=== PATIENT | female | born 1970 | race Caucasian/White ===

== ENCOUNTER 2017-01-10 08:19 | Emergency (ER) | payer BC ==
[~2017-01-10] VITALS: Ht 160 cm; Wt 60.3 kg
[~2017-01-10 08:19] MED LIST: CIPRO500 MG PO; CYMBALTA60 M1 PO; FLO4 PO; IMITREX100 MG PO; MET2.5 PO; MOTRIN800 MG PO; SEROQUEL200 MG PO; SOMA350 MG PO; SYN25; SYNTHROID0.125 MG PO; TEG100 PO; TRAZODONE HCL100 MG PO; TRAZODONE HYDR100 MG PO; TYLENOL WITH CO1 TA3 PO
[2017-01-10 09:12] LABS: BASOPHIL % 0.2 % (0-2); PLATELET COUNT 276 x10^3mcL (130-400); RED CELL DISTRIBUTION WIDTH 13.9 % (11.5-14.5)
[2017-01-10 09:28] LABS: CALCIUM 8.7 mg/dL (8.5-10.1); CARBON DIOXIDE 29.6 mmol/L (21-32); CHLORIDE SERUM 105 mmol/L (98-107); CREATININE SERUM 0.9 mg/dL (0.6-1.0); GFR1 > 60 mL/min; GLUCOSE SERUM 125 mg/dL (74-106); POTASSIUM SERUM 3.7 mmol/L (3.5-5.1); SODIUM SERUM 142 mmol/L (136-145)
[2017-01-10 09:33] LABS: ALKALINE PHOSPHATASE 67 U/L (46-116); ALT/SGPT 20 U/L (14-59); AST/SGOT 16 U/L (15-37); BILIRUBIN TOTAL 0.37 mg/dL (0.20-1.00); TOTAL PROTEIN, SERUM 7.3 g/dL (6.4-8.2)
[2017-01-10 09:46] LABS: UA SPECIFIC GRAVITY 1.015 (1.005-1.035); microscopic required? YES; urine erythrocyte 2+ (NEGATIVE)
[2017-01-10 10:56] VITALS: BP 145/65
== END 2017-01-10 10:56 | disposition home or self-care (01) ==
LOC: ED 08:19
PROVIDERS: Emergency Medicine
DX: N20.2 Calculus of kidney with calculus of ureter (principal); Z87.442 Personal history of urinary calculi; Z79.899 Other long term (current) drug therapy
CPT/HCPCS: J1885; J2270; J2405; J7030; Q0092

== ENCOUNTER 2017-01-13 07:55 | Emergency (ER) | payer BC ==
[2017-01-13 08:46] LABS: BASOPHIL % 0.4 % (0-2); PLATELET COUNT 247 x10^3mcL (130-400); RED CELL DISTRIBUTION WIDTH 13.3 % (11.5-14.5)
[2017-01-13 08:50] LABS: CALCIUM 8.4 mg/dL (8.5-10.1); CARBON DIOXIDE 28.9 mmol/L (21-32); CHLORIDE SERUM 107 mmol/L (98-107); CREATININE SERUM 0.9 mg/dL (0.6-1.0); GFR1 > 60 mL/min; GLUCOSE SERUM 98 mg/dL (74-106); POTASSIUM SERUM 3.7 mmol/L (3.5-5.1); SODIUM SERUM 142 mmol/L (136-145)
[2017-01-13 08:55] LABS: ALBUMIN 3.6 g/dL (3.4-5.0); ALKALINE PHOSPHATASE 58 U/L (46-116); ALT/SGPT 17 U/L (14-59); AMYLASE 44 U/L (25-115); AST/SGOT 12 U/L (15-37); BILIRUBIN TOTAL 0.2 mg/dL (0.20-1.00); LIPASE 86 IU/L (73-393); TOTAL PROTEIN, SERUM 6.2 g/dL (6.4-8.2)
[2017-01-13 09:22] LABS: UA SPECIFIC GRAVITY 1.025 (1.005-1.035); microscopic required? YES; urine erythrocyte 2+ (NEGATIVE)
[2017-01-13 12:03] VITALS: BP 123/79
== END 2017-01-13 12:03 | disposition home or self-care (01) ==
LOC: ED 07:55
PROVIDERS: Specialist
DX: R10.9 Unspecified abdominal pain (principal); R10.30 Lower abdominal pain, unspecified; M79.7 Fibromyalgia; G43.909 Migraine, unspecified, not intractable, without status migrainosus; F17.200 Nicotine dependence, unspecified, uncomplicated; Z87.442 Personal history of urinary calculi; Z88.1 Allergy status to other antibiotic agents; Z88.2 Allergy status to sulfonamides
CPT/HCPCS: 83880; J1170; J1885; J3010; J7030; Q0092

== ENCOUNTER 2017-02-18 03:25 | Emergency (ER) | payer BC ==
[~2017-02-18] VITALS: Ht 160 cm; Wt 62.1 kg
[2017-02-18 05:58] VITALS: BP 125/81
== END 2017-02-18 05:58 | disposition home or self-care (01) ==
LOC: ED 03:25
DX: G43.909 Migraine, unspecified, not intractable, without status migrainosus (principal); E07.9 Disorder of thyroid, unspecified; R11.2 Nausea with vomiting, unspecified; Z88.2 Allergy status to sulfonamides; Z88.1 Allergy status to other antibiotic agents
CPT/HCPCS: J3030

== ENCOUNTER 2017-05-11 16:17 | Emergency (ER) | payer BC ==
[~2017-05-11] VITALS: Ht 160 cm; Wt 55.8 kg
[2017-05-11 19:45] LABS: BASOPHIL % 0.4 % (0-2); PLATELET COUNT 280 x10^3mcL (130-400)
[2017-05-11 19:46] LABS: RED CELL DISTRIBUTION WIDTH 14.8 % (11.5-14.5)
[2017-05-11 19:53] LABS: ALBUMIN 3.5 g/dL (3.4-5.0); ALKALINE PHOSPHATASE 75 U/L (46-116); ALT/SGPT 23 U/L (14-59); AMYLASE 38 U/L (25-115); AST/SGOT 21 U/L (15-37); BILIRUBIN TOTAL 0.3 mg/dL (0.20-1.00); CARBON DIOXIDE 29.6 mmol/L (21-32); CHLORIDE SERUM 105 mmol/L (98-107); CREATININE SERUM 0.9 mg/dL (0.6-1.0); GFR1 > 60 mL/min; GLUCOSE SERUM 102 mg/dL (74-106); LIPASE 98 IU/L (73-393); POTASSIUM SERUM 3.5 mmol/L (3.5-5.1); SODIUM SERUM 142 mmol/L (136-145); TOTAL PROTEIN, SERUM 6.8 g/dL (6.4-8.2)
[2017-05-11 20:40] LABS: CALCIUM 8.8 mg/dL (8.5-10.1)
[2017-05-11 23:16] VITALS: BP 128/82
== END 2017-05-11 23:16 | disposition home or self-care (01) ==
LOC: ED 16:17
PROVIDERS: Emergency Medicine
DX: N28.1 Cyst of kidney, acquired (principal); Z90.710 Acquired absence of both cervix and uterus
CPT/HCPCS: 83880; J1885; J2270; J2405; J2765; J7030

== ENCOUNTER 2017-07-08 08:39 | Emergency (ER) | payer BC ==
[~2017-07-08] VITALS: Ht 160 cm; Wt 58.2 kg
[2017-07-08 10:15] LABS: UA SPECIFIC GRAVITY 1.015 (1.005-1.035); microscopic required? YES; urine erythrocyte 3+ (NEGATIVE)
[2017-07-08 10:23] LABS: BASOPHIL % 0.2 % (0-2); PLATELET COUNT 263 x10^3mcL (130-400)
[2017-07-08 10:33] LABS: CARBON DIOXIDE 26.1 mmol/L (21-32); CHLORIDE SERUM 106 mmol/L (98-107); CREATININE SERUM 0.7 mg/dL (0.6-1.0); GFR1 > 60 mL/min; GLUCOSE SERUM 101 mg/dL (74-106); POTASSIUM SERUM 3.4 mmol/L (3.5-5.1); SODIUM SERUM 142 mmol/L (136-145); TOTAL PROTEIN, SERUM 7.3 g/dL (6.4-8.2)
[2017-07-08 10:34] LABS: ALKALINE PHOSPHATASE 75 U/L (46-116); ALT/SGPT 18 U/L (14-59); AST/SGOT 17 U/L (15-37); BILIRUBIN TOTAL 0.7 mg/dL (0.20-1.00); CALCIUM 8.9 mg/dL (8.5-10.1)
[2017-07-08 11:59] VITALS: BP 125/73
== END 2017-07-08 12:27 | disposition home or self-care (01) ==
LOC: ED 08:39
PROVIDERS: Emergency Medicine
DX: N20.1 Calculus of ureter (principal); Z88.1 Allergy status to other antibiotic agents; Z88.2 Allergy status to sulfonamides
CPT/HCPCS: J1885; J2405; J3010; J3030; J7030

== ENCOUNTER 2017-08-30 12:34 | Emergency (ER) | payer BC ==
[2017-08-30 15:48] VITALS: BP 132/62
== END 2017-08-30 15:48 | disposition home or self-care (01) ==
LOC: ED 12:34
DX: G43.909 Migraine, unspecified, not intractable, without status migrainosus (principal); Z88.1 Allergy status to other antibiotic agents; Z88.2 Allergy status to sulfonamides
CPT/HCPCS: J1885; J3010; J3030; Q0162

== ENCOUNTER 2017-09-15 12:55 | Emergency (ER) | payer BC ==
[2017-09-15 12:57] VITALS: BP 154/99
== END 2017-09-15 15:37 | disposition home or self-care (01) ==
LOC: ED 12:55
DX: G43.909 Migraine, unspecified, not intractable, without status migrainosus (principal); M19.90 Unspecified osteoarthritis, unspecified site; E05.90 Thyrotoxicosis, unspecified without thyrotoxic crisis or storm; Z88.1 Allergy status to other antibiotic agents; Z88.2 Allergy status to sulfonamides; Z90.710 Acquired absence of both cervix and uterus
CPT/HCPCS: J3030; Q0162

== ENCOUNTER 2017-09-25 09:24 | Emergency (ER) | payer BC ==
[2017-09-25 11:02] LABS: UA SPECIFIC GRAVITY 1.015 (1.005-1.035); microscopic required? YES; urine erythrocyte 3+ (NEGATIVE)
[2017-09-25 13:28] VITALS: BP 143/83
== END 2017-09-25 13:28 | disposition home or self-care (01) ==
LOC: ED 09:24
PROVIDERS: Emergency Medicine
DX: G43.909 Migraine, unspecified, not intractable, without status migrainosus (principal); N20.0 Calculus of kidney; Z87.442 Personal history of urinary calculi; E03.9 Hypothyroidism, unspecified; M19.90 Unspecified osteoarthritis, unspecified site; Z88.1 Allergy status to other antibiotic agents; Z88.2 Allergy status to sulfonamides
CPT/HCPCS: J1885; J2270; J2405; J7030; Q0092

== ENCOUNTER 2017-10-22 13:11 | Emergency (ER) | payer BC ==
[2017-10-22 16:57] VITALS: BP 123/77
== END 2017-10-22 16:57 | disposition home or self-care (01) ==
LOC: ED 13:11
DX: G43.909 Migraine, unspecified, not intractable, without status migrainosus (principal); M19.90 Unspecified osteoarthritis, unspecified site; E05.90 Thyrotoxicosis, unspecified without thyrotoxic crisis or storm; F17.210 Nicotine dependence, cigarettes, uncomplicated; Z88.1 Allergy status to other antibiotic agents; Z88.2 Allergy status to sulfonamides; Z71.6 Tobacco abuse counseling
CPT/HCPCS: 99406; J1885; J2765; J3030

== ENCOUNTER 2017-11-17 06:16 | Emergency (ER) | payer BC ==
[~2017-11-17] VITALS: Ht 160 cm; Wt 55.8 kg
[2017-11-17 06:24] VITALS: Ht 160 cm; Wt 55.8 kg
[2017-11-17 07:40] VITALS: BP 142/63
== END 2017-11-17 07:40 | disposition home or self-care (01) ==
LOC: ED 06:16
DX: B34.9 Viral infection, unspecified (principal); G43.909 Migraine, unspecified, not intractable, without status migrainosus; R03.0 Elevated blood-pressure reading, without diagnosis of hypertension; E05.90 Thyrotoxicosis, unspecified without thyrotoxic crisis or storm; Z88.1 Allergy status to other antibiotic agents; Z88.2 Allergy status to sulfonamides
CPT/HCPCS: J1885; J2765; J3030; J7613; J7644

== ENCOUNTER 2017-12-08 16:57 | Emergency (ER) | payer BC ==
[~2017-12-08] VITALS: Ht 162.6 cm; Wt 56.2 kg
[2017-12-08 17:03] VITALS: Ht 162.6 cm; Wt 56.2 kg
[2017-12-08 19:19] LABS: BASOPHIL % 0.4 % (0-2); PLATELET COUNT 313 x10^3mcL (130-400); RED CELL DISTRIBUTION WIDTH 13.6 % (11.5-14.5)
[2017-12-08 19:22] LABS: CALCIUM 9.1 mg/dL (8.5-10.1); CARBON DIOXIDE 22.1 mmol/L (21-32); CHLORIDE SERUM 104 mmol/L (98-107); CREATININE SERUM 0.8 mg/dL (0.6-1.0); GFR1 > 60 mL/min; GLUCOSE SERUM 91 mg/dL (74-106); POTASSIUM SERUM 3.6 mmol/L (3.5-5.1); SODIUM SERUM 138 mmol/L (136-145)
[2017-12-08 19:26] LABS: ALBUMIN 3.7 g/dL (3.4-5.0); ALKALINE PHOSPHATASE 83 U/L (46-116); ALT/SGPT 18 U/L (14-59); AST/SGOT 15 U/L (15-37); BILIRUBIN TOTAL 0.39 mg/dL (0.20-1.00); TOTAL PROTEIN, SERUM 7.3 g/dL (6.4-8.2)
[2017-12-09 00:16] VITALS: BP 121/78
== END 2017-12-09 00:16 | disposition home or self-care (01) ==
LOC: ED 16:57
PROVIDERS: Emergency Medicine
DX: G43.909 Migraine, unspecified, not intractable, without status migrainosus (principal); M19.90 Unspecified osteoarthritis, unspecified site; E05.90 Thyrotoxicosis, unspecified without thyrotoxic crisis or storm; Z88.1 Allergy status to other antibiotic agents; Z88.2 Allergy status to sulfonamides
CPT/HCPCS: J0780; J1100; J1885; J2270; J7030; Q0092

== ENCOUNTER 2019-02-15 22:09 | Emergency (ER) | payer BC ==
[~2019-02-15] VITALS: Ht 160 cm; Wt 78.5 kg
[2019-02-15 22:17] VITALS: Ht 160 cm; Wt 78.5 kg
[2019-02-15 23:08] VITALS: BP 157/105
== END 2019-02-15 23:08 | disposition home or self-care (01) ==
LOC: ED 22:09
DX: S90.32XA Contusion of left foot, initial encounter (principal); G43.909 Migraine, unspecified, not intractable, without status migrainosus; F41.9 Anxiety disorder, unspecified; E03.9 Hypothyroidism, unspecified; M19.90 Unspecified osteoarthritis, unspecified site; Z88.2 Allergy status to sulfonamides; Z88.1 Allergy status to other antibiotic agents; Z87.442 Personal history of urinary calculi; Z90.712 Acquired absence of cervix with remaining uterus; W20.8XXA Other cause of strike by thrown, projected or falling object, initial encounter; Y93.89 Activity, other specified; Y92.89 Other specified places as the place of occurrence of the external cause; Y99.8 Other external cause status

== ENCOUNTER 2019-08-31 08:34 | Emergency (ER) | payer BC ==
[~2019-08-31] VITALS: Ht 160 cm; Wt 80.7 kg
[2019-08-31 08:42] VITALS: Ht 160 cm; Wt 80.7 kg
[2019-08-31 09:58] LABS: BASOPHIL % 0.6 % (0-2); PLATELET COUNT 328 x10^3mcL (130-400)
[2019-08-31 10:09] LABS: CALCIUM 8.4 mg/dL (8.5-10.1); CARBON DIOXIDE 23.4 mmol/L (21-32); CHLORIDE SERUM 110 mmol/L (98-107); CREATININE SERUM 0.7 mg/dL (0.6-1.0); GFR1 > 60 mL/min; GLUCOSE SERUM 85 mg/dL (74-106); POTASSIUM SERUM 3.7 mmol/L (3.5-5.1); SODIUM SERUM 143 mmol/L (136-145)
[2019-08-31 10:21] LABS: ALBUMIN 3.5 g/dL (3.4-5.0); ALKALINE PHOSPHATASE 128 U/L (46-116); ALT/SGPT 17 U/L (14-59); AST/SGOT 5 U/L (15-37); BILIRUBIN TOTAL 0.27 mg/dL (0.20-1.00); HDL CHOLESTEROL 57 mg/dL (40-60); LIPASE 131 IU/L (73-393); T4(THYROXINE) 8.8 ug/dL (4.7-13.3); TOTAL PROTEIN, SERUM 7.1 g/dL (6.4-8.2)
[2019-08-31 10:27] LABS: CHOLESTEROL 277 mg/dL (<200)
[2019-08-31 10:33] LABS: RED CELL DISTRIBUTION WIDTH 16.6 % (11.5-14.5)
[2019-08-31 10:45] LABS: UA SPECIFIC GRAVITY 1.025 (1.005-1.035); microscopic required? YES; urine erythrocyte 1+ (NEGATIVE)
[2019-08-31 11:00] LABS: AMPHETAMINE QUAL UR NONE DETECTED (See below)
[2019-08-31 13:50] VITALS: BP 128/76
== END 2019-08-31 13:50 | disposition left against medical advice (07) ==
LOC: ED 08:34
PROVIDERS: Emergency Medicine
DX: K44.9 Diaphragmatic hernia without obstruction or gangrene (principal); M79.7 Fibromyalgia; E03.9 Hypothyroidism, unspecified; F17.210 Nicotine dependence, cigarettes, uncomplicated; L93.0 Discoid lupus erythematosus; G43.909 Migraine, unspecified, not intractable, without status migrainosus; F41.9 Anxiety disorder, unspecified; M19.90 Unspecified osteoarthritis, unspecified site; Z98.890 Other specified postprocedural states; Z87.442 Personal history of urinary calculi; Z90.711 Acquired absence of uterus with remaining cervical stump; Z88.2 Allergy status to sulfonamides; Z88.1 Allergy status to other antibiotic agents
CPT/HCPCS: 99406; J0500; J1885; J2765; J3490; J7030; Q0092

== ENCOUNTER 2019-09-25 17:54 | Emergency (ER) | payer BC ==
[~2019-09-25] VITALS: Ht 160 cm; Wt 78.0 kg
[2019-09-25 18:08] VITALS: Ht 160 cm; Wt 78.0 kg
[2019-09-25 19:10] LABS: BASOPHIL % 0.3 % (0-2); PLATELET COUNT 368 x10^3mcL (130-400)
[2019-09-25 19:12] LABS: RED CELL DISTRIBUTION WIDTH 15.6 % (11.5-14.5)
[2019-09-25 19:27] LABS: CALCIUM 9.2 mg/dL (8.5-10.1); CARBON DIOXIDE 25.1 mmol/L (21-32); CHLORIDE SERUM 105 mmol/L (98-107); GFR1 > 60 mL/min; GLUCOSE SERUM 100 mg/dL (74-106); POTASSIUM SERUM 3.7 mmol/L (3.5-5.1); SODIUM SERUM 140 mmol/L (136-145)
[2019-09-25 19:31] LABS: ALBUMIN 3.9 g/dL (3.4-5.0); ALKALINE PHOSPHATASE 146 U/L (46-116); ALT/SGPT 23 U/L (14-59); AST/SGOT 11 U/L (15-37); BILIRUBIN TOTAL 0.29 mg/dL (0.20-1.00); LIPASE 46 IU/L (73-393); TOTAL PROTEIN, SERUM 7.8 g/dL (6.4-8.2)
[2019-09-25 21:07] VITALS: BP 130/70
== END 2019-09-25 21:07 | disposition home or self-care (01) ==
LOC: ED 17:54
PROVIDERS: Emergency Medicine
DX: K29.70 Gastritis, unspecified, without bleeding (principal); K44.9 Diaphragmatic hernia without obstruction or gangrene; F17.210 Nicotine dependence, cigarettes, uncomplicated; M32.9 Systemic lupus erythematosus, unspecified; G43.909 Migraine, unspecified, not intractable, without status migrainosus; F41.9 Anxiety disorder, unspecified; M79.7 Fibromyalgia; Z90.711 Acquired absence of uterus with remaining cervical stump; Z87.442 Personal history of urinary calculi; Z90.89 Acquired absence of other organs; Z71.6 Tobacco abuse counseling; Z88.2 Allergy status to sulfonamides; Z88.1 Allergy status to other antibiotic agents
CPT/HCPCS: 99406; J2405; J3010; J3490

== ENCOUNTER 2019-11-07 08:56 | Emergency (ER) | payer BC ==
[~2019-11-07] VITALS: Ht 160 cm; Wt 77.1 kg
[2019-11-07 09:13] VITALS: Ht 160 cm; Wt 77.1 kg
[2019-11-07 12:04] VITALS: BP 137/81
== END 2019-11-07 12:04 | disposition home or self-care (01) ==
LOC: ED 08:56
DX: S46.911A Strain of unspecified muscle, fascia and tendon at shoulder and upper arm level, right arm, initial encounter (principal); G43.909 Migraine, unspecified, not intractable, without status migrainosus; Z88.2 Allergy status to sulfonamides; Z88.0 Allergy status to penicillin; Z87.442 Personal history of urinary calculi; W01.0XXA Fall on same level from slipping, tripping and stumbling without subsequent striking against object, initial encounter; Y93.89 Activity, other specified; Y92.89 Other specified places as the place of occurrence of the external cause; Y99.8 Other external cause status
CPT/HCPCS: J1885

== ENCOUNTER 2020-03-09 22:31 | Inpatient (IN) | payer BC ==
[~2020-03-09] VITALS: Ht 160 cm; Wt 69.0 kg
[2020-03-09 22:43] VITALS: Ht 160 cm; Wt 69.0 kg
[2020-03-09 23:57] LABS: UA SPECIFIC GRAVITY 1.025 (1.005-1.035); microscopic required? YES; urine erythrocyte 3+ (NEGATIVE)
[2020-03-10 00:40] LABS: BASOPHIL % 0.6 % (0-2); PLATELET COUNT 314 x10^3mcL (130-400)
[2020-03-10 00:42] LABS: RED CELL DISTRIBUTION WIDTH 19.8 % (11.5-14.5)
[2020-03-10 00:44] LABS: CALCIUM 8.4 mg/dL (8.5-10.1); CARBON DIOXIDE 24.7 mmol/L (21-32); CHLORIDE SERUM 108 mmol/L (98-107); CREATININE SERUM 0.9 mg/dL (0.6-1.0); GFR1 > 60 mL/min; GLUCOSE SERUM 108 mg/dL (74-106); POTASSIUM SERUM 3.2 mmol/L (3.5-5.1); SODIUM SERUM 145 mmol/L (136-145)
[2020-03-10 00:49] LABS: ALBUMIN 3.5 g/dL (3.4-5.0); ALKALINE PHOSPHATASE 114 U/L (46-116); ALT/SGPT 18 U/L (14-59); AST/SGOT 18 U/L (15-37); BILIRUBIN TOTAL 0.2 mg/dL (0.20-1.00); LIPASE 115 IU/L (73-393); TOTAL PROTEIN, SERUM 6.5 g/dL (6.4-8.2)
[2020-03-10 02:42] LABS: CHOLESTEROL/HDL RATIO 3.4; MAGNESIUM 2.2 mg/dL (1.8-2.4); PHOSPHOROUS 3.7 mg/dL (2.5-4.9)
[2020-03-10 03:15] VITALS: BP 156/73
[2020-03-10 06:31] LABS: CALCIUM 8.6 mg/dL (8.5-10.1); CARBON DIOXIDE 23.9 mmol/L (21-32); CHLORIDE SERUM 108 mmol/L (98-107); CREATININE SERUM 0.9 mg/dL (0.6-1.0); GFR1 > 60 mL/min; GLUCOSE SERUM 124 mg/dL (74-106); MAGNESIUM 2.1 mg/dL (1.8-2.4); PHOSPHOROUS 3.8 mg/dL (2.5-4.9); POTASSIUM SERUM 3.1 mmol/L (3.5-5.1); SODIUM SERUM 142 mmol/L (136-145)
[2020-03-10 06:36] LABS: BASOPHIL % 0.4 % (0-2); PLATELET COUNT 296 x10^3mcL (130-400)
[2020-03-10 06:40] LABS: RED CELL DISTRIBUTION WIDTH 19.4 % (11.5-14.5)
[2020-03-10 08:21] VITALS: BP 151/72
[2020-03-10 13:54] VITALS: BP 156/84
[2020-03-10 17:17] VITALS: BP 137/74
[2020-03-10 20:41] VITALS: BP 133/76
[2020-03-11 05:41] VITALS: BP 116/80
[2020-03-11 06:30] LABS: BASOPHIL % 0.6 % (0-2); PLATELET COUNT 262 x10^3mcL (130-400)
[2020-03-11 06:37] LABS: RED CELL DISTRIBUTION WIDTH 19.6 % (11.5-14.5)
[2020-03-11 06:46] LABS: CALCIUM 8.1 mg/dL (8.5-10.1); CHLORIDE SERUM 109 mmol/L (98-107); CREATININE SERUM 0.8 mg/dL (0.6-1.0); GFR1 > 60 mL/min; GLUCOSE SERUM 92 mg/dL (74-106); POTASSIUM SERUM 3.7 mmol/L (3.5-5.1); SODIUM SERUM 141 mmol/L (136-145)
[2020-03-11 09:21] VITALS: BP 109/63
[2020-03-11] MEDS ORDERED: FLO4 PO (10:15)
[2020-03-11] MEDS ORDERED: TOR10 PO (10:16)
[2020-03-11] MEDS ORDERED: ACETAMINOPHEN-H1 TA1 PO (10:16)
[2020-03-11 10:28] VITALS: BP 109/63
== END 2020-03-11 11:50 | disposition home or self-care (01) | DRG 693 ==
LOC: ED 22:31 → MU 03-10 02:20
PROVIDERS: Emergency Medicine; ADMIT Internal Medicine
DX: N20.1 Calculus of ureter (principal); N17.0 Acute kidney failure with tubular necrosis; G43.909 Migraine, unspecified, not intractable, without status migrainosus; M19.90 Unspecified osteoarthritis, unspecified site; M79.7 Fibromyalgia; G40.909 Epilepsy, unspecified, not intractable, without status epilepticus; E87.6 Hypokalemia; F17.210 Nicotine dependence, cigarettes, uncomplicated; F32.9 Major depressive disorder, single episode, unspecified; F41.1 Generalized anxiety disorder; Z83.3 Family history of diabetes mellitus; Z88.0 Allergy status to penicillin; Z88.2 Allergy status to sulfonamides; Z82.49 Family history of ischemic heart disease and other diseases of the circulatory system; Z87.442 Personal history of urinary calculi; Z79.899 Other long term (current) drug therapy
CPT/HCPCS: 83880; G0378; J1885; J2270; J2405; J3490; J7030

== ENCOUNTER 2020-04-06 18:20 | Emergency (ER) | payer BC ==
[~2020-04-06] VITALS: Ht 160 cm; Wt 66.7 kg
[~2020-04-06 18:20] MED LIST changes: +ACETAMINOPHEN-H1 TA1 PO; +TOR10 PO
[2020-04-06 18:33] VITALS: Ht 160 cm; Wt 66.7 kg
[2020-04-06 20:29] LABS: BASOPHIL % 0.6 % (0-2); PLATELET COUNT 365 x10^3mcL (130-400)
[2020-04-06 20:31] LABS: RED CELL DISTRIBUTION WIDTH 18.2 % (11.5-14.5)
[2020-04-06 20:34] LABS: CARBON DIOXIDE 23.5 mmol/L (21-32); CHLORIDE SERUM 105 mmol/L (98-107); CREATININE SERUM 0.9 mg/dL (0.6-1.0); GFR1 > 60 mL/min; GLUCOSE SERUM 94 mg/dL (74-106); POTASSIUM SERUM 3.8 mmol/L (3.5-5.1); SODIUM SERUM 142 mmol/L (136-145)
[2020-04-06 20:39] LABS: ALBUMIN 4.3 g/dL (3.4-5.0); ALKALINE PHOSPHATASE 132 U/L (46-116); ALT/SGPT 19 U/L (14-59); AST/SGOT 17 U/L (15-37); BILIRUBIN TOTAL 0.3 mg/dL (0.20-1.00); LIPASE 184 IU/L (73-393); TOTAL PROTEIN, SERUM 8.2 g/dL (6.4-8.2)
[2020-04-06 22:35] LABS: microscopic required? YES; urine erythrocyte 3+ (NEGATIVE)
[2020-04-06 23:03] VITALS: BP 157/88
== END 2020-04-06 23:03 | disposition home or self-care (01) ==
LOC: ED 18:20
PROVIDERS: Specialist
DX: N20.0 Calculus of kidney (principal); G43.909 Migraine, unspecified, not intractable, without status migrainosus; Z90.711 Acquired absence of uterus with remaining cervical stump; Z98.890 Other specified postprocedural states; Z88.2 Allergy status to sulfonamides; Z88.1 Allergy status to other antibiotic agents
CPT/HCPCS: J1885; J2405; J3010; J7030; Q0092

== ENCOUNTER 2020-10-01 16:40 | Emergency (ER) | payer BC ==
[~2020-10-01] VITALS: Ht 160 cm; Wt 66.2 kg
[2020-10-01 17:15] VITALS: Ht 160 cm; Wt 66.2 kg
[2020-10-01 22:11] VITALS: BP 125/76
== END 2020-10-01 22:11 | disposition home or self-care (01) ==
LOC: ED 16:40
DX: G89.29 Other chronic pain (principal); M54.5 Low back pain; F17.210 Nicotine dependence, cigarettes, uncomplicated; G43.909 Migraine, unspecified, not intractable, without status migrainosus; M79.7 Fibromyalgia; Z98.890 Other specified postprocedural states; Z90.710 Acquired absence of both cervix and uterus; Z87.442 Personal history of urinary calculi; Z88.2 Allergy status to sulfonamides; Z88.1 Allergy status to other antibiotic agents

== ENCOUNTER 2020-12-28 09:11 | Inpatient (IN) | payer BC ==
[~2020-12-28] VITALS: Ht 160 cm; Wt 67.3 kg
[2020-12-28 09:41] LABS: BASOPHIL % 0.8 % (0.2-1.3); PLATELET COUNT 341 x10^3mcL (179-408)
[2020-12-28 09:42] LABS: RED CELL DISTRIBUTION WIDTH 15.9 % (12.3-17.7)
[2020-12-28 10:32] LABS: CALCIUM 9.3 mg/dL (8.5-10.1); CARBON DIOXIDE 22.9 mmol/L (21-32); CHLORIDE SERUM 106 mmol/L (98-107); CREATININE SERUM 0.9 mg/dL (0.6-1.0); GFR1 > 60 mL/min; GLUCOSE SERUM 117 mg/dL (74-106); POTASSIUM SERUM 4.3 mmol/L (3.5-5.1); SODIUM SERUM 142 mmol/L (136-145)
[2020-12-28 10:41] LABS: ALBUMIN 3.7 g/dL (3.4-5.0); ALKALINE PHOSPHATASE 83 U/L (46-116); ALT/SGPT 24 U/L (14-59); AST/SGOT 14 U/L (15-37); BILIRUBIN TOTAL 0.2 mg/dL (0.20-1.00); TOTAL PROTEIN, SERUM 7.6 g/dL (6.4-8.2)
[2020-12-28 12:54] LABS: MAGNESIUM 2.1 mg/dL (1.8-2.4); PHOSPHOROUS 3.9 mg/dL (2.5-4.9)
[2020-12-28 12:55] LABS: CHOLESTEROL/HDL RATIO 4.1
[2020-12-28 13:00] LABS: FREE T4 1.26 ng/dL (0.76-1.46); FREE THYROXINE INDEX 3.7 ug/dL (1.4-4.5); T4(THYROXINE) 10.8 ug/dL (4.7-13.3)
[2020-12-28 13:36] LABS: T3 TOTAL 0.97 ng/mL
[2020-12-28 14:06] VITALS: BP 131/78
[2020-12-28 14:13] VITALS: Ht 160 cm; Wt 67.3 kg
[2020-12-28 14:14] LABS: microscopic required? YES; urine erythrocyte 1+ (NEGATIVE)
[2020-12-28 14:32] LABS: AMPHETAMINE QUAL UR NONE DETECTED (See below)
[2020-12-28 15:46] VITALS: BP 116/67
== END 2020-12-28 20:41 | disposition left against medical advice (07) | DRG 694 ==
LOC: ED 09:11 → MU 12:20
PROVIDERS: Emergency Medicine; Family Medicine; ADMIT Internal Medicine; ATTEND Internal Medicine
DX: N20.0 Calculus of kidney (principal); E03.9 Hypothyroidism, unspecified; M19.90 Unspecified osteoarthritis, unspecified site; F41.1 Generalized anxiety disorder; M32.9 Systemic lupus erythematosus, unspecified; G43.909 Migraine, unspecified, not intractable, without status migrainosus; Z20.822 Contact with and (suspected) exposure to COVID-19; M79.7 Fibromyalgia; F32.9 Major depressive disorder, single episode, unspecified; Z79.899 Other long term (current) drug therapy; Z88.2 Allergy status to sulfonamides; Z88.1 Allergy status to other antibiotic agents; Z90.710 Acquired absence of both cervix and uterus; Z98.891 History of uterine scar from previous surgery; Z79.891 Long term (current) use of opiate analgesic; Z79.01 Long term (current) use of anticoagulants; Z82.49 Family history of ischemic heart disease and other diseases of the circulatory system; Z83.3 Family history of diabetes mellitus
CPT/HCPCS: 84439; G0378; J0744; J1885; J2270; J2405; J3010; U0003